=== PATIENT | female | born 1975 ===

== ENCOUNTER 2020-05-06 04:04 | Emergency (ER) | payer SELFPAY ==
[2020-05-06 04:49] LABS: Basophils % (Auto) 0.3 % (0.0-1.8); Eosinophils # (Auto) 0.1 K/mm3 (0.0-0.4); Eosinophils % (Auto) 0.9 % (0.0-4.3); Hematocrit 36.3 % (30.3-42.9); Hemoglobin 12.4 gm/dl (10.1-14.3); Lymphocytes # (Auto) 2.9 K/mm3 (1.2-5.4); Lymphocytes % (Auto) 27.6 % (13.4-35.0); Mean Corpuscular HGB Conc 34 % (30-34); Mean Corpuscular Volume 88 fl (79-97); Monocytes # (Auto) 0.5 K/mm3 (0.0-0.8); Monocytes % (Auto) 4.7 % (0.0-7.3); Platelet Count 319 K/mm3 (140-440); Red Blood Count 4.11 M/mm3 (3.65-5.03); Red Cell Distribution Width 13.8 % (13.2-15.2)
[2020-05-06 04:51] LABS: Bilirubin,Urine NEG (Negative); Blood,Urine LG (Negative); Color,Urine Red (Yellow); Mucus,Urine 1+ /HPF; Sperm,Urine 1+ /HPF (NP); Urobilinogen,Urine < 2.0 mg/dL (<2.0)
[2020-05-06 04:53] LABS: RBC,Urine > 182.0 /HPF (0.0-6.0)
[2020-05-06 05:02] LABS: Alanine Aminotransferase 11 units/L (7-56); Albumin 4.3 g/dL (3.9-5); Blood Urea Nitrogen 16 mg/dL (7-17); Calcium 9.2 mg/dL (8.4-10.2); Hemolysis Index 8
[2020-05-06 05:05] LABS: BUN/Creatinine Ratio 27
--- NOTE | 2020-05-06 07:48 | Emergency Department Report ---
ED Abdominal Pain HPI - General Chief Complaint: Abdominal Pain Stated Complaint: ABD PAIN Time Seen by Provider: 05/06/20 07:34 Source: patient Mode of arrival: Ambulatory Limitations: No Limitations - History of Present Illness Initial Comments: Vascular Specialists used: Sabi (worker here) 44-year-old female presents to the ER today complaint of lower abdominal pain. Patient states that her pain started suddenly this morning around 330 this morning. She states that it is been an intermittent nonradiating pain. She reports nausea but no vomiting. She reports no bowel changes. She states she is currently on her menstrual cycle which started Tuesday. She reports passage of clots with her menstrual cycles but this is not unusual for her. She states that she has had some yellow vaginal discharge. She denies any UTI symptoms. She denies any fever or chills. She denies any history of abdominal surgeries. MD Complaint: abdominal pain -: Sudden (3am today) Location: LLQ, RLQ, suprapubic Radiation: none Migration to: no migration Severity: moderate - Related Data Previous Rx's Medication Instructions Recorded Last Taken Type Ketorolac [Toradol] 10 mg PO Q6H PRN #20 tablet 05/06/20 Unknown Rx Ondansetron [Zofran Odt] 4 mg PO Q6HR PRN #12 tab.rapdis 05/06/20 Unknown Rx Allergies Allergy/AdvReac Type Severity Reaction Status Date / Time No Known Allergies Allergy Unverified 05/06/20 04:17 ED Review of Systems ROS: Stated complaint: ABD PAIN Other details as noted in HPI Comment: All other systems reviewed and negative Constitutional: denies: chills, fever Eyes: denies: eye pain, eye discharge, vision change Gastrointestinal: abdominal pain, nausea Genitourinary: denies: urgency, dysuria, discharge, abnormal menses Musculoskeletal: denies: back pain, joint swelling, arthralgia Neurological: denies: headache, weakness, paresthesias Psychiatric: denies: anxiety, depression Hematological/Lymphatic: denies: easy bleeding, easy bruising ED Past Medical Hx - Past Medical History Previous Medical History?: No - Surgical History Past Surgical History?: No - Social History Smoking Status: Never Smoker Substance Use Type: None - Medications Home Medications: Home Medications Medication Instructions Recorded Confirmed Last Taken Type Ketorolac [Toradol] 10 mg PO Q6H PRN #20 tablet 05/06/20 Unknown Rx Ondansetron [Zofran Odt] 4 mg PO Q6HR PRN #12 tab.rapdis 05/06/20 Unknown Rx ED Physical Exam - General Limitations: No Limitations General appearance: alert, in no apparent distress - Head Head exam: Present: atraumatic, normocephalic, normal inspection - Eye Eye exam: Present: normal appearance, PERRL, EOMI Pupils: Present: normal accommodation - ENT ENT exam: Present: normal exam, normal orophraynx, mucous membranes moist - Respiratory Respiratory exam: Present: normal lung sounds bilaterally. Absent: respiratory distress - Cardiovascular Cardiovascular Exam: Present: regular rate, normal rhythm, normal heart sounds - GI/Abdominal GI/Abdominal exam: Present: soft, tenderness (diffuse lower abdominal ttp; no guarding or rebound. no mcburneys point ttp. ). Absent: distended - External exam: Present: normal external exam Speculum exam: Present: vaginal bleeding. Absent: vaginal discharge, cervical discharge, foreign body Bi-manual exam: Present: adnexal tenderness (Bilaterally ). Absent: cervical motion tendernes - Back Exam Back exam: Present: normal inspection, full ROM - Neurological Exam Neurological exam: Present: alert, oriented X3, CN II-XII intact, normal gait - Skin Skin exam: Present: intact ED Course Vital Signs 05/06/20 04:13 Temperature 97.8 F Pulse Rate 72 Respiratory 20 Rate Blood Pressure 135/72 O2 Sat by Pulse 100 Oximetry ED Medical Decision Making - Lab Data Result diagrams: 05/06/20 04:26 05/06/20 04:26 - Radiology Data Radiology results: report reviewed Findings [facility] [address] [place] [address] Cat Scan Report Signed Patient: AISHA TORIBIO MR #: [id number] : 1975 Acct:[id number] Age/Sex: 44 / F ADM Date: 05/06/20 Loc: ED Attending Dr: Ordering Physician: SOSA NEAL Date of Service: 05/06/20 Procedure(s): CT abdomen pelvis wo con Accession Number(s): [id number] cc: SOSA NEAL CT ABDOMEN AND PELVIS WITHOUT CONTRAST INDICATION / CLINICAL INFORMATION: Lower abd pain. TECHNIQUE: Axial CT images were obtained through the abdomen and pelvis without IV contrast. All CT scans at this location are performed using CT dose reduction for ALARA by means of automated exposure control. COMPARISON: None available. FINDINGS: LOWER CHEST: 5 mm noncalcified nodule within the right middle lobe region. LIVER: No significant abnormality. GALLBLADDER: Cholelithiasis. BILE DUCTS: No significant abnormality. PANCREAS: No significant abnormality. SPLEEN: No significant abnormality. ADRENALS: No significant abnormality. RIGHT KIDNEY and URETER: No significant abnormality. LEFT KIDNEY and URETER: No significant abnormality. STOMACH and SMALL BOWEL: No significant abnormality. COLON: No significant abnormality. APPENDIX: No significant abnormality. PERITONEUM: Tiny free pelvic fluid.. LYMPH NODES: No s ignificant adenopathy. AORTA and ARTERIES: No significant abnormality. IVC and VEINS: No significant abnormality. URINARY BLADDER: No significant abnormality. REPRODUCTIVE ORGANS: The uterus is enlarged and the contour is lobular.. ADDITIONAL FINDINGS: None. SKELETAL SYSTEM: No significant abnormality. IMPRESSION: 1. Enlarged uterus with lobular contour. Recommend pelvic ultrasound for further evaluation to exclude underlying fibroid. 2. Tiny free pelvic fluid is likely physiologic. 3. 5 mm noncalcified nodule within the right middle lobe INCIDENTAL PULMONARY NODULE RECOMMENDATIONS Solid Nodule size <6 mm -- Single or Multiple - Low Risk Patient: No routine follow-up - High Risk Patient: Optional CT at 12 months Note These recommendations do not apply to lung cancer screening, patients with immunosuppression, or patients with known primary cancer. Note Newly detected indeterminate nodule in persons 35 years of age or older. Persons under the age of 35 should not receive follow-up unless there is a known primary cancer. Low Risk Patient -- minimal or absent history of smoking and of other known risk factors. High Risk Patient -- history of smoking or of other known risk factors. Nodule dimensions are average of long and short axes, rounded to the nearest millimeter. Based on 2017 Fleischner Society Guidelines found in Radiology 2017 284:228-243. [email or web address] Signer Name: Forrest Sanchez MD Signed: 05/06/2020 9:55 AM Workstation Name: [id number] Transcribed By: BC Dictated By: Forrest Sanchez MD Electronically Authenticated By: Forrest Sanchez MD Signed Date/Time: 05/06/20954 DD/ TD/TT: Findings [facility] [address] [place] [address] Ultrasound Report Signed Patient: AISHA TORIBIO MR #: [id number] : 1975 Acct:[id number] Age/Sex: 44 / F ADM Date: 05/06/20 Loc: ED Attending Dr: Ordering Physician: SOSA NEAL Date of Service: 05/06/20 Procedure(s): US pelvic complete Accession Number(s): [id number] cc: SOSA NEAL ULTRASOUND PELVIS INDICATION / CLINICAL INFORMATION: pelvic pain/enlarged uterus on ct. TECHNIQUE: Transabdominal. Duplex Color Doppler used: Yes. COMPARISON: No prior ultrasound. Prior CT dated 05/06/2020 FINDINGS: UTERUS: The uterus is anteverted and measures 9.7 x 8.1 x 7.7 cm. Endometrial thickness is within normal limits measuring 4 mm. 2 intramural uterine fibroids are noted measuring 2.7 x 2.3 x 2.6 cm in the posterior uterine body and 2.8 x 2.9 x 2.7 cm near the fundus. RIGHT ADNEXA: Minimally complex appearance of the right ovary measuring 4 x 2.6 x 5.1 cm with multiple septations and minimal internal echoes. Normal color Doppler blood flow. LEFT ADNEXA: Simple left ovarian cyst noted measuring 2.8 cm likely a dominant follicle. Normal color Doppler blood flow. URINARY BLADDER: No significant abnormality. FREE FLUID: Minimal free pelvic fluid is likely physiologic. ADDITIONAL FINDINGS: None. IMPRESSION: 1. Multiple uterine fibroids described in detail above. 2. Complex cystic appearance of the right ovary needs ultrasound follow-up in 6-12 weeks. Signer Name: Mukesh Crawford MD Signed: 05/06/2020 12:19 PM Workstation Name: [id number] Transcribed By: Dictated By: MUKESH CRAWFORD Electronically Authenticated By: MUKESH CRAWFORD Signed Date/Time: 05/06/209 DD/ 09 TD/TT: - Medical Decision Making Pt presented to ED c/o low abd pain since 3am this morning with nausea but no vomiting. Pt currently resting comfortably. She reports some improvement of her pain with IM toradol. Repeat Abdominal exam show soft non tendern abd. Labs/UA reviewed and unremarkable. CT/US reviewed -- shows gallstones/uterine fibroids/ovarian cyst -- imaging otherwise unremarkable. Discussed results with patient. Informed she will need to f/u with OBGYN for her uterine fibroids/ovarian cyst. Will also give her referral to general surgery for her gallstones. pt is well appearing, not toxic, well hydrated and in no acute distress. No further w/u or admission or emergent consult indicated at this time. Pt expressed understanding of results and agrees with plan. She was stable at time of d/c. Critical care attestation.: If time is entered above; I have spent that time in minutes in the direct care of this critically ill patient, excluding procedure time. ED Disposition Clinical Impression: Uterine fibroid, Ovarian cyst, Cholelithiasis Disposition: TO HOME OR SELFCARE Is pt being admited?: No Does the pt Need Aspirin: No Condition: Stable Instructions: Ovarian Cyst (ED), Uterine Fibroids (ED), Cholelithiasis (ED) Additional Instructions: I recommend that you follow up with OBGYN for further evaluation of your ovarian cyst/fibroids. Follow up with General Surgeon for the gallstones. Take medications as prescribed. Return to ED if worse. Prescriptions: Ketorolac [Toradol] 10 mg PO Q6H PRN #20 tablet PRN Reason: Pain Ondansetron [Zofran Odt] 4 mg PO Q6HR PRN #12 tab.rapdis PRN Reason: Vomiting Referrals: [facility] [Provider Group] - 3-5 Days (Please follow up with OBGYN) ADRIA LOPEZ MD [Staff Physician] - 3-5 Days (Please Follow up general surgeon) Time of Disposition: 12:32 Print Language: FRENCH
[2020-05-06] MEDS ORDERED: ONDANSETRON 4 MG ODT TAB PO ONE (08:07)
[2020-05-06] MEDS ORDERED: KETOROLAC 60 MG/2 ML INJ IM ONE (08:07)
--- NOTE | 2020-05-06 09:59 | Cat Scan Report ---
CT ABDOMEN AND PELVIS WITHOUT CONTRAST INDICATION / CLINICAL INFORMATION: Lower abd pain. TECHNIQUE: Axial CT images were obtained through the abdomen and pelvis without IV contrast. All CT scans at [facility] location are performed using CT dose reduction for ALARA by means of automated exposure control. COMPARISON: None available. FINDINGS: LOWER CHEST: 5 mm noncalcified nodule within the right middle lobe region. LIVER: No significant abnormality. GALLBLADDER: Cholelithiasis. BILE DUCTS: No significant abnormality. PANCREAS: No significant abnormality. SPLEEN: No significant abnormality. ADRENALS: No significant abnormality. RIGHT KIDNEY and URETER: No significant abnormality. LEFT KIDNEY and URETER: No significant abnormality. STOMACH and SMALL BOWEL: No significant abnormality. COLON: No significant abnormality. APPENDIX: No significant abnormality. PERITONEUM: Tiny free pelvic fluid.. LYMPH NODES: No significant adenopathy. AORTA and ARTERIES: No significant abnormality. IVC and VEINS: No significant abnormality. URINARY BLADDER: No significant abnormality. REPRODUCTIVE ORGANS: The uterus is enlarged and the contour is lobular.. ADDITIONAL FINDINGS: None. SKELETAL SYSTEM: No significant abnormality. IMPRESSION: 1. Enlarged uterus with lobular contour. Recommend pelvic ultrasound for further evaluation to exclud e underlying fibroid. 2. Tiny free pelvic fluid is likely physiologic. 3. 5 mm noncalcified nodule within the right middle lobe INCIDENTAL PULMONARY NODULE RECOMMENDATIONS Solid Nodule size <6 mm -- Single or Multiple - Low Risk Patient: No routine follow-up - High Risk Patient: Optional CT at 12 months Note These recommendations do not apply to lung cancer screening, patients with immunosuppression, o r patients with known primary cancer. Note Newly detected indeterminate nodule in persons 35 years of age or older. Persons under the age of 35 should not receive follow-up unless there is a known primary cancer. Low Risk Patient -- minimal or absent history of smoking and of other known risk factors. High Risk Patient -- history of smoking or of other known risk factors. Nodule dimensions are average of long and short axes, rounded to the nearest millimeter. Based on 2017 Fleischner Society Guidelines found in Radiology 2017 284:228-243. [email or web address] [email or web address] Signer Name: Forrest Sanchez MD Signed: 05/06/2020 9:55 AM Workstation Name: [email or web address]
--- NOTE | 2020-05-06 12:23 | Ultrasound Report ---
ULTRASOUND PELVIS INDICATION / CLINICAL INFORMATION: pelvic pain/enlarged uterus on ct. TECHNIQUE: Transabdominal. Duplex Color Doppler used: Yes. COMPARISON: No prior ultrasound. Prior CT dated 05/06/2020 FINDINGS: UTERUS: The uterus is anteverted and measures 9.7 x 8.1 x 7.7 cm. Endometrial thickness is within nor mal limits measuring 4 mm. 2 intramural uterine fibroids are noted measuring 2.7 x 2.3 x 2.6 cm in th e posterior uterine body and 2.8 x 2.9 x 2.7 cm near the fundus. RIGHT ADNEXA: Minimally complex appearance of the right ovary measuring 4 x 2.6 x 5.1 cm with multipl e septations and minimal internal echoes. Normal color Doppler blood flow. LEFT ADNEXA: Simple left ovarian cyst noted measuring 2.8 cm likely a dominant follicle. Normal color Doppler blood flow. URINARY BLADDER: No significant abnormality. FREE FLUID: Minimal free pelvic fluid is likely physiologic. ADDITIONAL FINDINGS: None. IMPRESSION: 1. Multiple uterine fibroids described in detail above. 2. Complex cystic appearance of the right ovary needs ultrasound follow-up in 6-12 weeks. Signer Name: Mukesh Bowie MD Signed: 05/06/2020 12:19 PM Workstation Name: [id number]
[2020-05-06 12:54] VITALS: BP 131/74
== END 2020-05-06 12:52 | disposition home or self-care (01) ==
LOC: EDSEX → ED 04:04
DX: D25.9 Leiomyoma of uterus, unspecified (principal); N83.8 Other noninflammatory disorders of ovary, fallopian tube and broad ligament; K80.20 Calculus of gallbladder without cholecystitis without obstruction; Z79.899 Other long term (current) drug therapy
CPT/HCPCS: 36415; 74176; 76856; 80053; 81001; 83690; 84703; 85025; 87086; 87210; 87591; 96372; 99284; J1885; Q0162